=== PATIENT | male | born 1955 ===

== ENCOUNTER 2018-11-25 11:25 | Outpatient (CLI) | payer OTHER ==
[~2018-11-25] VITALS: Ht 175.3 cm; Wt 81.6 kg
== END 2018-11-25 11:40 | disposition home or self-care (01) ==
LOC: OFIC 805 11:25
DX: J38.2 Nodules of vocal cords (principal); R49.0 Dysphonia; J39.2 Other diseases of pharynx

== ENCOUNTER 2019-01-31 09:29 | Outpatient (CLI) | payer OTHER ==
[~2019-01-31] VITALS: Ht 152.4 cm; Wt 81.6 kg
== END 2019-01-31 09:45 | disposition home or self-care (01) ==
LOC: OFIC 805 09:29
DX: J38.2 Nodules of vocal cords (principal); K21.0 Gastro-esophageal reflux disease with esophagitis